=== PATIENT | male | born 1985 | race Caucasian/White ===

== ENCOUNTER 2022-07-26 12:09 | Outpatient (CLI) | payer OTHER, SELFPAY ==
--- NOTE | 2022-07-29 16:28 | WPDHOLTEREM ---
Holter/Event Monitor Holter/Event Monitor Date of procedure: 07/26/22 Holter/Event Procedure: 48 Hr Holter Monitor Indications: Tachycardia, dyspnea Conclusion: 1. 48 hour holter monitor on 07/26/22. 2. Underlying rhythm is sinus rhythm. HR range 56-162; average HR 90 bpm. 3. No premature supraventricular complexes. No supraventricular tachycardia. 4. There are 2 premature ventricular complexes. No ventricular tachycardia. 5. No sinoatrial or atrioventricular blocks. No significant pauses greater than 2 seconds. 6. Patient reports symptoms of heart racing and fluttering which demonstrate sinus rhythm, HR range 78-107 bpm.
== END 2022-07-26 12:10 | disposition home or self-care (01) ==
LOC: ANHCARD 12:10
PROVIDERS: PCP Emergency Medicine; Visit Provider Emergency Medicine
DX: R00.0 Tachycardia, unspecified (principal)
CPT/HCPCS: 93225; 93226